=== PATIENT | female | born 1995 | race African-American/Black ===

== ENCOUNTER 2016-09-21 10:23 | Observation (INO) | payer OTHER ==
[~2016-09-21] VITALS: Ht 158.8 cm; Wt 44.8 kg
[2016-09-21 11:18] LABS: HEMATOCRIT 38.4 % (36.0-46.0); MCH 30.8 PG (29.0-34.0); MCHC 35.2 G/DL (30.0-36.0); MCV 87.5 FL (83-99); MEAN PLAT.VOLUME 10.1 uM^3 (9.5-12.4); PLATELET COUNT 274 K/uL (156-360); RBC DIS.WIDTH-SD 37.7 % (39-53); RED BLOOD COUNT 4.39 M/uL (3.80-5.20); WHITE BLOOD COUNT 8.7 K/uL (4.1-10.2)
[2016-09-21 11:28] LABS: CHLORIDE 109 mEq/L (99-109); POTASSIUM 3.7 mEq/L (3.7-5.4); SODIUM 139 mEq/L (136-147)
[2016-09-21 11:29] LABS: GLUCOSE 106 mg/dL (70-99)
[2016-09-21 11:31] LABS: ANION GAP 10 MEQ/L (2-14)
[2016-09-21 11:33] LABS: GFR ESTIMATE (CALCULATED) > 59 mL/min/
[2016-09-21 11:34] LABS: UREA NITROGEN (BUN) 12 mg/dL (9-23)
[2016-09-21 11:38] LABS: TROP-I INTERPRETATION NEGATIVE; TROPONIN-I < 0.01 ng/mL (0.0-0.30)
[2016-09-21 11:43] LABS: QUANTITATIVE HCG < 4.0 MIU/ML
[2016-09-21] MEDS ORDERED: ONDANSETRON ODT4 MG PO (17:04)
[2016-09-21] MEDS ORDERED: DEPO-PROVER150 MG/ML IM (17:04)
[2016-09-21] MEDS ORDERED: MIRALAX17 GM PO (17:05)
[2016-09-21 17:34] VITALS: BP 124/65
[2016-09-21 19:00] VITALS: BP 119/69
[2016-09-22] VITALS: BP 106/55
[2016-09-22 00:42] LABS: ADD MIUA? NO; BILIRUBIN NEGATIVE; BLOOD NEGATIVE; COLOR YELLOW ((YELLOW)); GLUCOSE (STRIP) NEGATIVE; KETONES 20; LEUKOCYTES NEGATIVE; NITRITE NEGATIVE; PROTEIN (STRIP) NEGATIVE; SPECIFIC GRAVITY 1.017 (1.000-1.030); UCUL ADDED? NO; UROBILINOGEN 0.2 MG/DL (0.2-1.0)
[2016-09-22 01:31] LABS: AMPHETAMINES QUANT VALUE 0 NG/ML; BARBITUATES QUANT VALUE 0 NG/ML; BENZODIAZEPINES QUANT VALUE 0 NG/ML; BENZODIAZEPINES, URINE SCREEN Negative (200 ng/mL); MARIJUANA QUANT VALUE 0 NG/ML; OPIATES QUANTITATIVE VALUE 0 NG/ML; PHENCYCLIDINE QUANT VALUE 0 NG/ML
[2016-09-22 01:47] LABS: TROP-I INTERPRETATION NEGATIVE; TROPONIN-I < 0.01 ng/mL (0.0-0.30)
[2016-09-22 06:46] LABS: MCH 30.7 PG (29.0-34.0); MCHC 34.3 G/DL (30.0-36.0); MCV 89.5 FL (83-99); MEAN PLAT.VOLUME 10.9 uM^3 (9.5-12.4); PLATELET COUNT 210 K/uL (156-360); RBC DIS.WIDTH-CV 12.4 % (11.8-14.6); RED BLOOD COUNT 3.91 M/uL (3.80-5.20)
[2016-09-22 06:47] LABS: WHITE BLOOD COUNT 5.7 K/uL (4.1-10.2)
[2016-09-22 07:01] LABS: ANION GAP 6 MEQ/L (2-14); CHLORIDE 109 MEQ/L (99-109); GFR ESTIMATE (CALCULATED) > 59 mL/min/; GLUCOSE 84 mg/dL (70-99); SAMPLE HEMOLYSIS CHECK 1; SAMPLE ICTERIC CHECK 0; SAMPLE LIPEMIA CHECK 0; SODIUM 137 MEQ/L (136-147); UREA NITROGEN (BUN) 7 mg/dL (9-23)
[2016-09-22 07:03] LABS: TROP-I INTERPRETATION NEGATIVE; TROPONIN-I < 0.01 ng/mL (0.0-0.30)
[2016-09-22 07:09] LABS: POTASSIUM 4.2 MEQ/L (3.7-5.4)
[2016-09-22 09:41] VITALS: BP 107/63
== END 2016-09-22 11:16 | disposition home or self-care (01) ==
LOC: EME 10:23 → EDOF 16:47 → 5WEST 17:33
PROVIDERS: Emergency Medicine; Hospitalist; Physician Assistant Medical
DX: R07.2 Precordial pain (principal); R06.00 Dyspnea, unspecified; K58.9 Irritable bowel syndrome, unspecified; M26.629 Arthralgia of temporomandibular joint, unspecified side
CPT/HCPCS: 71020; 71275; 80048; 80306 90; 81003; 84484; 84702; 85027; 93005; 99281; 99285; G0378; J1200; J1644; J1885; J2405; J7030

== ENCOUNTER → 2016-10-03 | Outpatient (CLI) | payer OTHER ==
[~2016-10-03] MED LIST: DEPO-PROVER150 MG/ML IM; MIRALAX17 GM PO; ONDANSETRON ODT4 MG PO
== END | disposition home or self-care (01) ==
LOC: RES 07:51
DX: R06.02 Shortness of breath (principal)
CPT/HCPCS: 94010; 94070; 94726; 94729

== ENCOUNTER 2017-11-14 11:38 | Emergency (ER) | payer OTHER ==
[~2017-11-14] VITALS: Ht 154.9 cm; Wt 45.7 kg
[2017-11-14 12:12] LABS: HEMATOCRIT 38.8 % (36.0-46.0); HEMOGLOBIN 13.7 G/DL (11.9-15.5); MCH 31.4 PG (29.0-34.0); MCHC 35.3 G/DL (30.0-36.0); PLATELET COUNT 294 K/uL (156-360); RBC DIS.WIDTH-CV 11.7 % (11.8-14.6); RBC DIS.WIDTH-SD 37.9 % (39-53); RED BLOOD COUNT 4.37 M/uL (3.80-5.20); WHITE BLOOD COUNT 12.1 K/uL (4.1-10.2)
[2017-11-14 12:16] LABS: MCV 88.8 FL (83-99)
[2017-11-14 12:24] LABS: ALBUMIN 4.4 g/dL (3.2-4.8); CHLORIDE 109 mEq/L (99-109); POTASSIUM 3.8 mEq/L (3.7-5.4)
[2017-11-14 12:25] LABS: SODIUM 139 mEq/L (136-147)
[2017-11-14 12:27] LABS: GLUCOSE 87 mg/dL (70-99); TOTAL PROTEIN 7.6 g/dL (6.4-8.3)
[2017-11-14 12:29] LABS: TOTAL BILIRUBIN 0.5 mg/dL (0.0-1.0)
[2017-11-14 12:30] LABS: ALKALINE PHOSPHATASE 71 IU/L (3-129); CREATININE 0.8 mg/dL (0.6-1.3); GFR ESTIMATE (CALCULATED) > 59 mL/min/
[2017-11-14 12:32] LABS: AST (GOT) 16 IU/L (2-34); UREA NITROGEN (BUN) 12 mg/dL (9-23)
[2017-11-14 12:33] LABS: ALT (GPT) 12 IU/L (3-49)
[2017-11-14 12:37] LABS: TROP-I INTERPRETATION NEGATIVE; TROPONIN-I < 0.01 ng/mL (0.0-0.30)
[2017-11-14 12:39] LABS: QUANTITATIVE HCG < 4.0 MIU/ML
[2017-11-14 13:14] LABS: APPEARANCE SL.HAZY ((CLEAR)); BILIRUBIN NEGATIVE; BLOOD NEGATIVE; COLOR YELLOW ((YELLOW)); GLUCOSE (STRIP) NEGATIVE; KETONES 20; LEUKOCYTES SMALL; NITRITE NEGATIVE; PROTEIN (STRIP) 30; SPECIFIC GRAVITY 1.024 (1.000-1.030); UROBILINOGEN 0.2 MG/DL (0.2-1.0)
[2017-11-14 13:30] VITALS: BP 115/71
[2017-11-14 13:33] LABS: BACTERIA 2+ /HPF; EPITHELIAL CELLS 1+ /HPF; MUCUS 4+ /LPF; RED BLOOD CELLS 0-5 /HPF (0-5); UCUL ADDED? YES
== END 2017-11-14 14:50 | disposition home or self-care (01) ==
LOC: EME → EDBD 11:38 → EME 11:38
PROVIDERS: Nurse Practitioner Acute Care
DX: B34.9 Viral infection, unspecified (principal); R42 Dizziness and giddiness; R53.1 Weakness; Z98.818 Other dental procedure status; Z91.81 History of falling
CPT/HCPCS: 70450; 80053; 81003; 83605; 84484; 84702; 85027; 87086; 93005; 99281; 99285; J7030